=== PATIENT | female | born 1970 | race Caucasian/White ===

== ENCOUNTER 2017-01-25 20:10 | Emergency (ER) | payer OTHER ==
[~2017-01-25] VITALS: Ht 160 cm; Wt 100.9 kg
[~2017-01-25 20:10] MED LIST: PARO25TA2 PO
[2017-01-25 20:18] VITALS: BP 139/86; PULSE 74; RESP 16; O2SAT 99
--- NOTE | 2017-01-25 20:25 | ED.REPORT ---
HPI-Abd Pain F 40 and Over Date of Service Jan 25, 2017 ED Provider: Samuel Tejeda MD Pt is a 46 y/o female w/ a hx of diverticulitis presenting to the ED c/o left- sided abdominal pain onset today. The patient was diagnosed with diverticulitis 3 years ago and had a flare-up 3 weeks ago at which time she was given Flagyl and a sulfa abx at a walk in clinic without a CT scan. The patient stopped taking her antibiotics after 4 days. She c/o associated nausea, constipation. Pt denies fever, chills, vomiting, diarrhea. Nursing Notes Stated Complaint: ABDOMINAL PAIN Chief Complaint: Female Abdominal Pain Nursing Notes Reviewed: Yes Allergies: Coded Allergies: No Known Allergies (Verified , 01/25/17) Scheduled Ciprofloxacin (Cipro) 500 Mg Tablet 500 MG PO BID Metronidazole (Flagyl) 500 Mg Tablet 500 MG PO Q8H Paroxetine-Expunged Drug, Do Not Renew! (Paroxetine-Expunged Drug, Do Not Renew! ) 25 Mg Tab.sr.24h 25 MG PO DAILY Scheduled PRN Hydrocodone-Acetaminophen 5-325 mg (Hydrocodone-Acetaminophen 5-325 mg) 1 Each Tablet 1 TABLET PO Q4H PRN PRN For Pain Ondansetron ODT (Zofran ODT) 4 Mg Tablet 4 MG PO Q4H PRN PRN For Nausea General Time Seen by MD: 20:21 Chief Complaint Abdominal pain Hx Obtained From: Patient Arrived By: Walk-in Sudden in Onset?: No Onset Occurred: 5 - 8 hours ago Symptom Duration: Since onset Progression since Onset: Constant Location: : LLQ Quality: Painful Radiation: : Does not radiate Severity: Current: Moderate Severity: Maximum: Moderate Recent Healthcare: Previous diagnosis Similar Sx Previous: Yes Past Medical History Past Medical History Hx diverticulitis Past Surgical History Left ankle Smoking History Unknown if Ever Smoker Social History Alcohol Use: Denies alcohol use Drug Use: Denies drug use Ambulatory Status Independent Review of Systems Constitutional: Denies: Chills, Fever Respiratory: Denies: Non-productive cough, Shortness of breath Cardiovascular: Denies: Chest pain, Dyspnea on exertion GI: Reports: Abdominal pain, Constipation, Nausea, Denies: Diarrhea, Vomiting Complete sys rev & neg: except as marked. Physical Exam Vital Signs Vital Signs (First) Date Time Temp Pulse Resp B/P Pulse Ox O2 Delivery O2 Flow Rate FiO2 01/25/17 20:18 36.2 74 16 139/86 99 Room Air Initial VS: Reviewed, Vital signs normal Head / Eyes: Atraumatic, Normocephalic, PERRL ENT: Mucous membranes moist, Conjunctiva normal, No scleral icterus Neck: Supple, Full range of motion Extremities: Vascular intact, Neuro intact, No swelling Skin: Warm, Dry, No cyanosis Neurologic: Alert, Oriented, Nonfocal Psychiatric: Mood/affect normal, Behavior normal, Normal thought content General/Constitutional: Awake, Alert, No acute distress, Cooperative, Not toxic appearing Respiratory / Chest: Breath sounds NL, Breath sounds = bilat, No respiratory distress, No rales, No rhonchi, No wheezing Cardiovascular: Heart rate NL, Regular rhythm, Heart sounds NL, No gallop, No murmurs, No rubs, Cap refill not delayed, Peripheral circulation NL Abdomen: Atraumatic, Soft, No guarding, No rebound, No distention Tenderness/Guarding/Rebound: Positive: Tender LLQ... (Moderate) Back: Full range of motion, Painless range of motion Interpretation & Diagnostics Lab Results Interpretation Result Diagram: 01/25/17212701/25/172127 Test 01/25/17 20:36 01/25/17 21:28 Urine Color Yellow (YELLOW) Urine Appearance Clear (CLEAR,HAZY) Urine pH 5.5 (5.0-8.0) Urine Specific [place] 1.028 (1.003-1.035) Urine Protein Negativemg/dL (NEG,TRACE) Urine Glucose (UA) Negativemg/dL (NEGATIVE) Urine Ketones Negativemg/dL (NEGATIVE) Urine Occult Blood Negative (NEGATIVE) Urine Nitrite Negative (NEGATIVE) Urine Bilirubin Negative (NEGATIVE) Urine Urobilinogen Normalmg/dL (NORMAL) Urine Leukocyte Esterase Negative (NEGATIVE) Urine RBC 0-2/hpf (0-2) Urine WBC 0-5/hpf (0-5) Urine Epithelial Cells Few/hpf (NONE-MOD) Urine Crystals None seen (NONE SEEN) Urine Bacteria Few/hpf (NONE-FEW) Urine Hyaline Casts None/lpf (NONE) Urine Granular Casts None seen (NONE SEEN) Urine Waxy Casts None seen (NONE SEEN) Urine Red Blood Cell Casts None seen (NONE SEEN) Urine White Blood Cell Casts None seen (NONE SEEN) Urine Mucus None seen (None Seen) Urine Trichomonas None seen (NONE SEEN) Urine Yeast None (NONE SEEN) Urinalysis Comment None Urine Culture Reflexed Not indicated White Blood Count 7.6th/mm3 (3.8-10.1) Red Blood Count 3.98mil/mm3 (3.90-5.20) Hemoglobin 13.6g/dL (12.0-15.6) Hematocrit 39.9% (35.0-46.0) Mean Corpuscular Volume 100.3fL (81-100) Mean Corpuscular Hemoglobin 34.2pg (27.0-35.0) Mean Corpuscular Hemoglobin Concent 34.1% (32.0-37.0) Red Cell Distribution Width 12.3% (12.3-15.4) Platelet Count 228bil/L (150-400) Neutrophils (%) (Auto) 75.1% (40-74) Lymphocytes (%) (Auto) 16.9% (14-46) Monocytes (%) (Auto) 5.8% (4-12) Eosinophils (%) (Auto) 1.8% (0-5) Basophils (%) (Auto) 0.1% (0-3) Sodium Level 138mEq/L (134-144) Potassium Level 4.3mEq/L (3.5-5.2) Chloride Level 102mEq/L (97-108) Carbon Dioxide Level 21mmol/L (18-29) Blood Urea Nitrogen 15mg/dL (6-24) Creatinine 0.67mg/dL (0.57-1.00) Estimat Glomerular Filtration Rate 137mL/min (>59) Glucose Level 104mg/dL (60-99) Calcium Level 9.8mg/dL (8.5-10.1) Total Bilirubin 0.5mg/dL (0.0-1.2) Aspartate Amino Transf (AST/SGOT) 18U/L (0-50) Alanine Aminotransferase (ALT/SGPT) 14U/L (0-32) Alkaline Phosphatase 56U/L (25-150) Total Protein 7.7g/dL (6.4-8.4) Albumin 4.4g/dL (3.4-5.0) Lipase 38U/L (13-60) Hold Negrete Top Tube Received (Received) CT Abd / Pelvis Interpretation Conclusion: Findings consistent with diverticulitis in the left lower quadrant. Small bubble of air adjacent to the colon the left lower quadrant which may be extraluminal in location. No evidence of abscess remission. Interpreted by Hugh Ballard MD Study type: Abdominal CT IV contrast Interpretation / Wet Read by: Interpret - Radiologist, Discussed w radiologist Re-Eval/Medical Decision Med Decision/Clinical Course 46-year-old female history of diverticulitis presenting with upper quadrant pain times several weeks. She was treated for diverticulitis several weeks ago presumptively but stopped the antibiotic course early. Now with recurrent pain. She does have moderate R quadrant tenderness. Blood cell count is normal. Her vital signs are stable. CT shows diverticulitis with small microperforation. Her abdominal exam with mild tenderness no rebound or guarding. I did discuss the case with general surgery Dr. Jimenes who thought she could be discharged home with oral antibiotics plans to follow up with general surgery as an outpatient. She was discharged on Cipro and Flagyl for 14 days with plans to return immediately should she develop worsening abdominal pain, nausea vomiting, fevers chills, any other new or worsening symptoms. Re-Evaluation/Progress : Time of Eval: 22:59 Patient Status: Condition improved, Moderate relief, Pain improved Re-Evaluation/Progress Note: Pt rechecked. Discussed imaging findings and surg consult. Informed pt of plan for treatment. Pt understands and agrees with plan for treatment. F/U instructions and RTER warnings given. All questions addressed. Consultation : Referral / Consult Name: Alphonso Jimenes MD Consulted With: Surgeon Call Returned at: 22:56 Want Ad Supervisor: Agrees with eval, Agrees with plan Note: Recommends discharge on oral abx, f/u with surgery as outpatient. Counseled Regarding: Diagnosis, Lab results, Need for follow-up, When/why to return to ED Discharge & Departure Primary Impression: Diverticulitis Diverticulitis site: large intestine Diverticulitis bleeding: without bleeding Diverticulitis complication: with perforation Qualified Code: K57.20 - Diverticulitis of large intestine with perforation and abscess without bleeding Disposition: Home Discharge Condition All VS Reviewed: Yes Condition: Stable Patient Instructions: Diverticulitis (ED) Additional Instructions: The CT scan today showed signs of diverticulitis. Labs today were reassuring that this is not a severe infection at this point. Take the full course of the antibiotics as prescribed. Return to the emergency department if you experience worsening abdominal pain, persistent vomiting, high fever, lightheadedness, or for other concerning symptoms. Follow-up with your primary care doctor in 1-2 days for a recheck. Also follow-up with the referred surgeon in 1 week. Tell them that Dr. Jimenes requested you have a close follow-up appointment. Referrals: Alphonso Jimenes MD Attestation Portions of this note were transcribed by Steve Rucker. I, Dr. Tejeda, personally performed the history, physical exam and medical decision-making; I reviewed and confirmed the accuracy of the information in the transcribed note. Signed by Jeanie Adamson, 01/25/172054 copies to: Alphonso Jimenes MD, Ben M MD Jan 25, 2017 20:25 STEVE RUCKER Jan 25, 2017 20:53
[2017-01-25] MEDS ORDERED: 0.9% Sodium Chloride 1,000 ML IV ONE ×2 (20:32→22:55)
[2017-01-25 20:52] LABS: APPEARANCE,URINE CLEAR (CLEAR,HAZY); COLOR,URINE YELLOW (YELLOW)
[2017-01-25 20:53] LABS: OCCULT BLOOD,URINE NEGATIVE (NEGATIVE); PH,URINE 5.5 (5.0-8.0); UROBILINOGEN,URINE NORMAL (NORMAL)
[2017-01-25] MEDS: HYDROmorphone 0.5 mg/0.5 mL iSecure Syringe IVPUSH PRN ×3 (21:23→23:35)
[2017-01-25 21:37] LABS: BASOPHILS % (AUTO) 0.1 % (0-3); EOSINOPHILS % (AUTO) 1.8 % (0-5); MONOCYTES % (AUTO) 5.8 % (4-12); Mean Corpuscular Hemoglobin 34.2 pg (27.0-35.0); Mean Corpuscular Volume 100.3 fL (81-100); NEUTROPHILS % (AUTO) 75.1 % (40-74); Platelet Count 228 bil/L (150-400)
[2017-01-25] MEDS: Ondansetron 2 mg/mL 2 mL Inj IVPUSH PRN ×2 (21:50→23:35)
[2017-01-25] MEDS ORDERED: Piperacillin-Tazo 3.375 Gm Inj 3.375 GM in Dextrose 5% Minibag Plus 50 ML IV ONE (22:55)
[2017-01-25] MEDS ORDERED: CIPR-231 PO (23:07)
[2017-01-25] MEDS ORDERED: HYDR-4003 PO (23:07)
[2017-01-25] MEDS ORDERED: METR500T PO (23:07)
[2017-01-25] MEDS ORDERED: ONDA4TAB9 PO (23:07)
[2017-01-25 23:48] VITALS: BP 136/85; PULSE 87; RESP 16; O2SAT 96
--- NOTE | 2017-01-26 07:23 | DRSVH ---
PROCEDURE: CT ABDOMEN AND PELVIS WITH CONTRAST ([id number]) INDICATIONS: LLQ pain TECHNIQUE: After the administration of intravenous contrast, 5 mm thick sections acquired from the diaphragm to the symphysis. 5 mm coronal and sagittal reformats were acquired. For radiation dose reduction, the following was used: automated exposure control, adjustment of mA and/or kV according to patient shavon brown. COMPARISON: [facility], CT, ABD/PELVIS W/CON (PN), 06/13/2013, 17:32. FINDINGS: Image quality: Excellent. ABDOMEN: Lung bases: Lung bases are clear. Heart size is normal. Solid organs: Liver and spleen are normal in size and enhancement. Gallbladder is present. Biliary system is non dilated. Pancreas enhances normally. No adrenal nodules. Kidneys demonstrate normal size and enhancement, without hydronephrosis. Peritoneum and bowel: Abnormal enhancement, all wall thickening, and surrounding edema in the sigmoi d colon consistent with acute diverticulitis. Tiny locule of gas may represent a focus of microperfor ation (se 5 im 23). No obstruction or drainable abscess. Normal small bowel appendix. Tiny posterior stomach diverticulum otherwise the stomach is regrettably normal. Nodes and vessels: No retroperitoneal or mesenteric adenopathy by size criteria. Aorta and inferior vena cava are normal in size. Miscellaneous: No ventral hernias. PELVIS: Genitourinary: Bladder wall thickness is normal. Miscellaneous: No inguinal hernias or adenopathy. 2.6 cm left adnexal low-density mass most consist ent with an ovarian cyst. Bones: No suspicious bony lesions. No vertebral body compression fractures. IMPRESSION: 1. Acute sigmoid diverticulitis. Possible tiny locule of adjacent gas may represent a microperforatio n. No drainable fluid collections. 2. Adjacent low density left adnexal mass and system with an ovarian cyst. 3. There are no discrepancies with the preliminary report. Dictated by: Beto Sorensen M.D. on 01/26/2017 at 7:10 Approved by: Beto Sorensen M.D. on 01/26/2017 at 7:16
== END 2017-01-25 23:45 | disposition home or self-care (01) ==
LOC: SED 20:10
DX: K57.20 Diverticulitis of large intestine with perforation and abscess without bleeding (principal); Z79.899 Other long term (current) drug therapy
CPT/HCPCS: 36415; 74177; 80053; 81000; 83690; 85025; 96361; 96374; 96375; 96376; 99285; J1170; J2405; J7030; Q9967